=== PATIENT | female | born 1950 | race Asian ===

== ENCOUNTER 2022-03-25 11:16 | Emergency (ER) | payer OTHER ==
[2022-03-25 11:27] VITALS: PULSE 81; BMI 29.2
[2022-03-25] MEDS ORDERED: LIDOCAINE 5% TOPICAL PATCH TP ONE (12:26)
[2022-03-25] MEDS ORDERED: LIDOCAINE 5% TOPICAL PATCH ONE (13:14)
[2022-03-25 14:03] LABS: INFLU A MOLECULAR Negative (Negative); INFLU B MOLECULAR Negative (Negative)
[2022-03-25 15:07] LABS: BASO % 1.1 % (0-2.0); EOS % 3.9 % (0-4.5); HEMATOCRIT 46.2 % (32.4-45.2); HEMOGLOBIN 14.9 GM/dL (10.7-15.3); LYMPH % 28.5 % (8-40); MCH 28.3 pg (25.7-33.7); MCHC 32.4 g/dl (32.0-36.0); MEAN CELL VOLUME 87.3 fl (80-96); MEAN PLT VOLUME 7.4 fl (7.5-11.1); MONO % 5.7 % (3.8-10.2); NEUT % 60.8 % (42.8-82.8); PLATELET COUNT 357 10^3/uL (134-434); RBC 5.29 M/mm3 (3.60-5.2); RDW 14.9 % (11.6-15.6); WHITE BLOOD COUNT 9.3 K/mm3 (4.0-10.0)
[2022-03-25 15:37] LABS: CALCIUM 8.9 mg/dL (8.5-10.1)
[2022-03-25 15:38] LABS: BLOOD UREA NITROGEN 13.9 mg/dL (7-18)
[2022-03-25 15:41] LABS: CREATININE 0.7 mg/dL (0.55-1.3)
[2022-03-25 15:42] LABS: TOT PROT 8.3 g/dl (6.4-8.2)
[2022-03-25 15:43] LABS: BILIRUBIN,TOTAL 0.4 mg/dL (0.2-1)
[2022-03-25 15:46] VITALS: BP 120/68; TEMP 98
[2022-03-25] MEDS ORDERED: FLUTICASONE PROP 0.05% 16 GM NASAL SPRAY NS ONE (19:36)
[2022-03-25] MEDS ORDERED: ALBUTEROL SO4 HFA INHALER IH ONE ×2 (19:36→19:42)
[2022-03-26] MEDS ORDERED: LIDOCAINE PATCH REMOVAL MC SCH (00:30)
[2022-03-26 16:09] LABS: SARS-CoV-2 NAA Not Detected (Not Detected)
== END 2022-03-25 20:31 | disposition home or self-care (01) ==
LOC: JER 11:16
PROC: 3E0F7GC Introduction of Other Therapeutic Substance into Respiratory Tract, Via Natural or Artificial Opening (ICD-10-PCS; principal; 2022-03-25)
DX: R06.02 Shortness of breath (principal); R05.9 Cough, unspecified; R09.81 Nasal congestion
CPT/HCPCS: 36415; 71046-TC-FY; 71275-TC; 80053; 84484; 85025; 85379; 87502; 93005; 93010; 94640; 99285-25; C9803-CS; Q9967; U0003; U0005

== ENCOUNTER 2022-09-18 22:37 | Emergency (ER) | payer OTHER ==
[2022-09-18 22:45] VITALS: BP 164/74; PULSE 78; RESP 15; TEMP 98; BMI 31.1
[2022-09-18] MEDS ORDERED: DIPHTH,PERTUSS(ACELL),TET 0.5 ML DISP.SYRIN IM ONE ×2 (22:52→23:19)
[2022-09-18] MEDS ORDERED: CLINDAMYCIN HCL 300 MG CAPSULE PO ONE (23:21)
[2022-09-18] MEDS ORDERED: CLINDAMYCIN HCL 150 MG CAPSULE (FP) ONE (23:23)
== END 2022-09-19 00:21 | disposition home or self-care (01) ==
LOC: JER 22:37
PROC: 0HQNXZZ Repair Left Foot Skin, External Approach (ICD-10-PCS; principal; 2022-09-18)
PROC: 3E0234Z Introduction of Serum, Toxoid and Vaccine into Muscle, Percutaneous Approach (ICD-10-PCS; 2022-09-18)
DX: S92.424B Nondisplaced fracture of distal phalanx of right great toe, initial encounter for open fracture (principal); W22.8XXA Striking against or struck by other objects, initial encounter
CPT/HCPCS: 12001-25; 73660-TC-FY; 90471; 90715; 99283-25

== ENCOUNTER 2023-03-13 13:51 | Inpatient (IN) | payer OTHER ==
[2023-03-13 13:53] VITALS: BMI 32.0
[2023-03-13 15:42] LABS: BASO % 0.7 % (0-2.0); EOS % 3.7 % (0-4.5); HEMATOCRIT 40.8 % (32.4-45.2); HEMOGLOBIN 13.9 GM/dL (10.7-15.3); MCH 29.2 pg (25.7-33.7); MCHC 34.1 g/dl (32.0-36.0); MEAN CELL VOLUME 85.4 fl (80-96); MEAN PLT VOLUME 7.7 fl (7.5-11.1); MONO % 6.6 % (3.8-10.2); PLATELET COUNT 350 10^3/uL (134-434); RBC 4.78 M/mm3 (3.60-5.2); RDW 14.8 % (11.6-15.6); WHITE BLOOD COUNT 7.2 K/mm3 (4.0-10.0)
[2023-03-13 15:48] LABS: INR 1.12 (0.83-1.09)
[2023-03-13 15:51] LABS: ACTIVATED PTT 36.8 SECONDS (25.2-36.5)
[2023-03-13 16:00] LABS: CALCIUM 9.4 mg/dL (8.5-10.1)
[2023-03-13 16:01] LABS: ALBUMIN 3.7 g/dl (3.4-5.0); BLOOD UREA NITROGEN 14.5 mg/dL (7-18); MAGNESIUM 2.3 mg/dL (1.8-2.4)
[2023-03-13 16:04] LABS: CREATININE 0.6 mg/dL (0.55-1.3)
[2023-03-13 16:05] LABS: BILIRUBIN,TOTAL 0.5 mg/dL (0.2-1); TOT PROT 7.6 g/dl (6.4-8.2)
[2023-03-13 16:09] LABS: N-TERMINAL BNP 31.4 pg/ml (5-450)
[2023-03-13 16:32] LABS: PH,URINE 6.5 (5.0-8.0); URINE APPEARANCE CLEAR; URINE BILIRUBIN NEGATIVE (NEGATIVE); URINE COLOR YELLOW; URINE GLUCOSE (UA) NEGATIVE (NEGATIVE); URINE KETONE NEGATIVE (NEGATIVE); URINE LEUK ESTERASE NEGATIVE (NEGATIVE); URINE NITRITE NEGATIVE (NEGATIVE); URINE PROTEIN NEGATIVE (NEGATIVE); URINE UROBILINOGEN 0.2 mg/dL (0.2-1.0)
[2023-03-13] MEDS ORDERED: ALBUTEROL SO4 HFA INHALER IH PRN (17:29)
[2023-03-13] MEDS ORDERED: ACETAMINOPHEN 325 MG TABLET (FP) PO PRN (17:31)
[2023-03-13 18:09] LABS: CALCIUM 9.2 mg/dL (8.5-10.1)
[2023-03-13 18:10] LABS: BLOOD UREA NITROGEN 13.9 mg/dL (7-18)
[2023-03-13 18:13] LABS: CREATININE 0.6 mg/dL (0.55-1.3)
[2023-03-13] MEDS ORDERED: ASPIRIN COATED 81 MG TABLET.EC ONE (19:14)
[2023-03-13] MEDS: ASPIRIN COATED 81 MG TABLET.EC PO SCH (19:20)
[2023-03-13 19:24] LABS: MAGNESIUM 2.3 mg/dL (1.8-2.4)
[2023-03-13] MEDS: HEPARIN NA (PORCINE) 5,000 UNITS/ML 1ML VIAL SQ SCH (21:43)
[2023-03-13] MEDS: ATORVASTATIN CA 10 MG TABLET (FP) PO SCH (21:43)
[2023-03-14] MEDS: LEVOTHYROXINE NA 88 MCG TABLET (FP) PO SCH (07:02)
[2023-03-14] MEDS: FAMOTIDINE 20 MG TABLET PO SCH (09:32)
[2023-03-14] MEDS: MULTIVITAMINS THER W-MINERALS COMBO TABLET (FP) PO SCH (09:32)
[2023-03-14] MEDS: amLODIPine BESYLATE 5 MG TABLET (FP) PO SCH (09:32)
[2023-03-14] MEDS: HEPARIN NA (PORCINE) 5,000 UNITS/ML 1ML VIAL SQ SCH ×2 (09:33→21:34)
[2023-03-14] MEDS: ASPIRIN COATED 81 MG TABLET.EC PO SCH (09:36)
[2023-03-14] MEDS: ATORVASTATIN CA 10 MG TABLET (FP) PO SCH (21:35)
[2023-03-15] MEDS: LEVOTHYROXINE NA 88 MCG TABLET (FP) PO SCH (06:31)
[2023-03-15] MEDS: ASPIRIN COATED 81 MG TABLET.EC PO SCH (10:18)
[2023-03-15] MEDS: MULTIVITAMINS THER W-MINERALS COMBO TABLET (FP) PO SCH (10:19)
[2023-03-15] MEDS: amLODIPine BESYLATE 5 MG TABLET (FP) PO SCH (10:19)
[2023-03-15] MEDS: HEPARIN NA (PORCINE) 5,000 UNITS/ML 1ML VIAL SQ SCH ×2 (10:19→21:43)
[2023-03-15] MEDS: FAMOTIDINE 20 MG TABLET PO SCH (10:19)
[2023-03-15 12:33] LABS: HEMATOCRIT 40.1 % (32.4-45.2); HEMOGLOBIN 13.6 GM/dL (10.7-15.3); MCH 28.8 pg (25.7-33.7); MEAN CELL VOLUME 84.7 fl (80-96); MEAN PLT VOLUME 7.4 fl (7.5-11.1); PLATELET COUNT 366 10^3/uL (134-434); RBC 4.73 M/mm3 (3.60-5.2); RDW 14.7 % (11.6-15.6); WHITE BLOOD COUNT 8.5 K/mm3 (4.0-10.0)
[2023-03-15 12:56] LABS: CALCIUM 9.3 mg/dL (8.5-10.1)
[2023-03-15 12:57] LABS: ALBUMIN 3.7 g/dl (3.4-5.0); BLOOD UREA NITROGEN 13.8 mg/dL (7-18)
[2023-03-15 13:00] LABS: CREATININE 0.6 mg/dL (0.55-1.3)
[2023-03-15 13:02] LABS: BILIRUBIN,TOTAL 0.5 mg/dL (0.2-1); TOT PROT 7.5 g/dl (6.4-8.2)
[2023-03-15] MEDS: ATORVASTATIN CA 20 MG TABLET (FP) PO SCH (21:43)
[2023-03-16] MEDS: LEVOTHYROXINE NA 88 MCG TABLET (FP) PO SCH (06:36)
[2023-03-16 07:44] LABS: HEMATOCRIT 39.7 % (32.4-45.2); HEMOGLOBIN 13.5 GM/dL (10.7-15.3); MCH 28.9 pg (25.7-33.7); MCHC 33.9 g/dl (32.0-36.0); MEAN CELL VOLUME 85.1 fl (80-96); MEAN PLT VOLUME 7.2 fl (7.5-11.1); PLATELET COUNT 361 10^3/uL (134-434); RBC 4.67 M/mm3 (3.60-5.2); RDW 14.8 % (11.6-15.6); WHITE BLOOD COUNT 8.2 K/mm3 (4.0-10.0)
[2023-03-16 08:17] LABS: CREATININE 0.6 mg/dL (0.55-1.3)
[2023-03-16 08:18] LABS: BILIRUBIN,TOTAL 0.5 mg/dL (0.2-1); TOT PROT 7.1 g/dl (6.4-8.2)
[2023-03-16 08:19] LABS: ALBUMIN 3.5 g/dl (3.4-5.0); BLOOD UREA NITROGEN 14.6 mg/dL (7-18); CALCIUM 9.1 mg/dL (8.5-10.1)
[2023-03-16 08:28] LABS: CHOLESTEROL 135 mg/dL (50-200)
[2023-03-16 08:31] LABS: HDL CHOLESTEROL 41 mg/dL (40-60); LDL CHOLESTEROL (ONLY SJRH) 79 mg/dL (5-100)
[2023-03-16] MEDS ORDERED: REGADENOSON 0.4 MG/5 ML PRE-FILLED SYRINGE IVPUSH ONE ×2 (09:39→10:00)
[2023-03-16] MEDS: FAMOTIDINE 20 MG TABLET PO SCH (14:05)
[2023-03-16] MEDS: MULTIVITAMINS THER W-MINERALS COMBO TABLET (FP) PO SCH (14:06)
[2023-03-16] MEDS: amLODIPine BESYLATE 5 MG TABLET (FP) PO SCH (14:06)
[2023-03-16] MEDS: HEPARIN NA (PORCINE) 5,000 UNITS/ML 1ML VIAL SQ SCH ×2 (14:06→22:09)
[2023-03-16] MEDS: ASPIRIN COATED 81 MG TABLET.EC PO SCH (14:06)
[2023-03-16] MEDS ORDERED: FUROSEMIDE 40 MG/4 ML INJECTABLE VIAL IVPUSH ONE (15:43)
[2023-03-16] MEDS ORDERED: ALBUTEROL SO4 2.5/IPRATROPIUM 0.5 INH SOL 3 ML VIAL.NEB. NEB PRN (15:44)
[2023-03-16] MEDS: CEFTRIAXONE 1 GM in DEXTROSE 5%-WATER - 50 ML IVPB SCH (22:08)
[2023-03-16] MEDS: AZITHROMYCIN IVPB 500 MG/250 ML BAG IVPB SCH (22:09)
[2023-03-16] MEDS: ATORVASTATIN CA 20 MG TABLET (FP) PO SCH (22:09)
[2023-03-16] MEDS: BUDESONIDE/FORMETEROL FUMARATE 80/4.5 mcg INHALER IH SCH (22:17)
[2023-03-17] MEDS: LEVOTHYROXINE NA 88 MCG TABLET (FP) PO SCH (06:24)
[2023-03-17 07:58] LABS: HEMATOCRIT 41.9 % (32.4-45.2); HEMOGLOBIN 14.5 GM/dL (10.7-15.3); MCH 29.2 pg (25.7-33.7); MCHC 34.6 g/dl (32.0-36.0); MEAN CELL VOLUME 84.5 fl (80-96); MEAN PLT VOLUME 7.6 fl (7.5-11.1); PLATELET COUNT 382 10^3/uL (134-434); RBC 4.96 M/mm3 (3.60-5.2); RDW 14.6 % (11.6-15.6); WHITE BLOOD COUNT 9.9 K/mm3 (4.0-10.0)
[2023-03-17 08:20] LABS: ALBUMIN 3.9 g/dl (3.4-5.0); CALCIUM 9.5 mg/dL (8.5-10.1); MAGNESIUM 2.2 mg/dL (1.8-2.4)
[2023-03-17 08:21] LABS: BLOOD UREA NITROGEN 14.6 mg/dL (7-18)
[2023-03-17 08:23] LABS: CREATININE 0.7 mg/dL (0.55-1.3); PHOSPHOROUS 3.9 mg/dL (2.5-4.9)
[2023-03-17 08:25] LABS: BILIRUBIN,TOTAL 0.6 mg/dL (0.2-1); TOT PROT 8.2 g/dl (6.4-8.2)
[2023-03-17] MEDS: VALSARTAN 40 MG TABLET PO SCH (10:06)
[2023-03-17] MEDS: ASPIRIN 81 MG CHEWABLE TABLETS PO SCH (10:06)
[2023-03-17] MEDS: metoPROLOL SUCCINATE 25 MG TAB.SR.24H (FP) PO SCH (10:06)
[2023-03-17] MEDS: FAMOTIDINE 20 MG TABLET PO SCH (10:06)
[2023-03-17] MEDS: HEPARIN NA (PORCINE) 5,000 UNITS/ML 1ML VIAL SQ SCH ×2 (10:06→21:09)
[2023-03-17] MEDS: MULTIVITAMINS THER W-MINERALS COMBO TABLET (FP) PO SCH (10:06)
[2023-03-17] MEDS: amLODIPine BESYLATE 2.5 MG TABLET (FP) PO SCH (10:06)
[2023-03-17] MEDS: CEFTRIAXONE 1 GM in DEXTROSE 5%-WATER - 50 ML IVPB SCH (10:07)
[2023-03-17] MEDS: AZITHROMYCIN IVPB 500 MG/250 ML BAG IVPB SCH (10:09)
[2023-03-17] MEDS: BUDESONIDE/FORMETEROL FUMARATE 80/4.5 mcg INHALER IH SCH ×2 (10:57→21:10)
[2023-03-17] MEDS: methylPREDNISolone NA SUCC 40 MG/1 ML VIAL IVPUSH SCH ×2 (16:37→17:07)
[2023-03-17 16:57] LABS: ARTERIAL BLD GAS O2 SATURATION 92.8 % (95-98); ARTERIAL BLOOD GAS BASE EXCESS 5.4 mmol/L (-2-2); ARTERIAL BLOOD GAS PO2 63.4 mmHg (80-100); ARTERIAL BLOOD GAS pH 7.436 (7.350-7.450)
[2023-03-17 16:59] LABS: ALLENS TEST POSITIVE
[2023-03-17] MEDS: ATORVASTATIN CA 20 MG TABLET (FP) PO SCH (21:09)
[2023-03-18] MEDS: methylPREDNISolone NA SUCC 40 MG/1 ML VIAL IVPUSH SCH ×2 (03:26→09:01)
[2023-03-18] MEDS: LEVOTHYROXINE NA 88 MCG TABLET (FP) PO SCH (06:17)
[2023-03-18 07:28] LABS: BASO % 0.6 % (0-2.0); HEMATOCRIT 39.8 % (32.4-45.2); HEMOGLOBIN 13.6 GM/dL (10.7-15.3); LYMPH % 10.9 % (8-40); MCH 29.1 pg (25.7-33.7); MCHC 34.2 g/dl (32.0-36.0); MEAN PLT VOLUME 7.4 fl (7.5-11.1); MONO % 1.1 % (3.8-10.2); NEUT % 87.4 % (42.8-82.8); PLATELET COUNT 393 10^3/uL (134-434); RBC 4.68 M/mm3 (3.60-5.2); RDW 14.6 % (11.6-15.6); WHITE BLOOD COUNT 14.3 K/mm3 (4.0-10.0)
[2023-03-18] MEDS: ASPIRIN 81 MG CHEWABLE TABLETS PO SCH (09:00)
[2023-03-18] MEDS: VALSARTAN 40 MG TABLET PO SCH (09:00)
[2023-03-18] MEDS: amLODIPine BESYLATE 2.5 MG TABLET (FP) PO SCH (09:01)
[2023-03-18] MEDS: MULTIVITAMINS THER W-MINERALS COMBO TABLET (FP) PO SCH (09:01)
[2023-03-18] MEDS: HEPARIN NA (PORCINE) 5,000 UNITS/ML 1ML VIAL SQ SCH ×2 (09:01→21:59)
[2023-03-18] MEDS: FAMOTIDINE 20 MG TABLET PO SCH (09:01)
[2023-03-18] MEDS: metoPROLOL SUCCINATE 25 MG TAB.SR.24H (FP) PO SCH (09:01)
[2023-03-18] MEDS: BUDESONIDE/FORMETEROL FUMARATE 80/4.5 mcg INHALER IH SCH ×2 (09:02→22:00)
[2023-03-18 09:41] LABS: ALBUMIN 3.6 g/dl (3.4-5.0); BILIRUBIN,TOTAL 0.5 mg/dL (0.2-1); BLOOD UREA NITROGEN 19.7 mg/dL (7-18); CALCIUM 9.2 mg/dL (8.5-10.1); CREATININE 0.7 mg/dL (0.55-1.3); MAGNESIUM 2.3 mg/dL (1.8-2.4); PHOSPHOROUS 3.2 mg/dL (2.5-4.9); TOT PROT 7.8 g/dl (6.4-8.2)
[2023-03-18 12:30] LABS: HEMATOCRIT 42.5 % (32.4-45.2); HEMOGLOBIN 14.2 GM/dL (10.7-15.3); MCH 28.4 pg (25.7-33.7); MCHC 33.4 g/dl (32.0-36.0); MEAN CELL VOLUME 85.2 fl (80-96); MEAN PLT VOLUME 7.8 fl (7.5-11.1); PLATELET COUNT 403 10^3/uL (134-434); RBC 4.98 M/mm3 (3.60-5.2); RDW 14.7 % (11.6-15.6); WHITE BLOOD COUNT 17.9 K/mm3 (4.0-10.0)
[2023-03-18] MEDS: ATORVASTATIN CA 20 MG TABLET (FP) PO SCH (21:54)
[2023-03-19] MEDS: HEPARIN NA (PORCINE) 5,000 UNITS/ML 1ML VIAL SQ SCH ×2 (06:24→14:03)
[2023-03-19] MEDS: LEVOTHYROXINE NA 88 MCG TABLET (FP) PO SCH (06:24)
[2023-03-19 08:21] LABS: HEMATOCRIT 40.1 % (32.4-45.2); HEMOGLOBIN 13.5 GM/dL (10.7-15.3); MCH 28.8 pg (25.7-33.7); MCHC 33.6 g/dl (32.0-36.0); MEAN CELL VOLUME 85.6 fl (80-96); PLATELET COUNT 433 10^3/uL (134-434); RBC 4.68 M/mm3 (3.60-5.2); RDW 14.7 % (11.6-15.6); WHITE BLOOD COUNT 18.5 K/mm3 (4.0-10.0)
[2023-03-19 08:41] LABS: ALBUMIN 3.6 g/dl (3.4-5.0); CALCIUM 9.4 mg/dL (8.5-10.1); MAGNESIUM 2.5 mg/dL (1.8-2.4)
[2023-03-19 08:43] LABS: CREATININE 0.7 mg/dL (0.55-1.3)
[2023-03-19 08:44] LABS: BLOOD UREA NITROGEN 23.3 mg/dL (7-18)
[2023-03-19 08:45] LABS: BILIRUBIN,TOTAL 0.5 mg/dL (0.2-1); TOT PROT 7.6 g/dl (6.4-8.2)
[2023-03-19 08:47] LABS: PHOSPHOROUS 3.5 mg/dL (2.5-4.9)
[2023-03-19 09:36] VITALS: RESP 18
[2023-03-19] MEDS: MULTIVITAMINS THER W-MINERALS COMBO TABLET (FP) PO SCH (09:36)
[2023-03-19] MEDS: VALSARTAN 40 MG TABLET PO SCH (09:36)
[2023-03-19] MEDS: metoPROLOL SUCCINATE 25 MG TAB.SR.24H (FP) PO SCH (09:36)
[2023-03-19] MEDS: BUDESONIDE/FORMETEROL FUMARATE 80/4.5 mcg INHALER IH SCH (09:37)
[2023-03-19] MEDS: amLODIPine BESYLATE 2.5 MG TABLET (FP) PO SCH (09:37)
[2023-03-19] MEDS: FAMOTIDINE 20 MG TABLET PO SCH (09:37)
[2023-03-19] MEDS: ASPIRIN 81 MG CHEWABLE TABLETS PO SCH (09:37)
[2023-03-19] MEDS ORDERED: predniSONE 20 MG TABLET (UD) PO SCH (10:00)
[2023-03-19 15:23] VITALS: BP 119/70; PULSE 69; TEMP 97.8
== END 2023-03-19 18:34 | disposition home or self-care (01) | DRG 191 ==
LOC: JER 13:51 → JERBED 14:12 → J4W 19:56 → OBSVTOIN 03-16 15:46
PROVIDERS: ADMIT Internal Medicine; ATTEND Internal Medicine
DX: J44.1 Chronic obstructive pulmonary disease with (acute) exacerbation (principal); I24.8 Other forms of acute ischemic heart disease; E03.9 Hypothyroidism, unspecified; I10 Essential (primary) hypertension; E66.9 Obesity, unspecified; Z68.31 Body mass index [BMI] 31.0-31.9, adult; R07.2 Precordial pain; K21.9 Gastro-esophageal reflux disease without esophagitis; E78.5 Hyperlipidemia, unspecified; I25.10 Atherosclerotic heart disease of native coronary artery without angina pectoris; G47.33 Obstructive sleep apnea (adult) (pediatric); R09.02 Hypoxemia; R93.1 Abnormal findings on diagnostic imaging of heart and coronary circulation
CPT/HCPCS: 0241U-QW; 36415; 36600; 71045-TC-FY; 71250-TC; 78452-TC; 80048; 80053; 80061; 81003; 82803; 83690; 83735; 83880; 84100; 84443; 84484; 85025; 85027; 85610; 85730; 87086; 87899; 93005; 93010; 93017; 93306-TC; 93970-TC; 94761; 99285-25; A9502; G0378; J1644; J2785

== ENCOUNTER 2024-09-23 04:31 | Day surgery (SDC) | payer OTHER ==
[2024-09-16 11:19] VITALS: BMI 32.0
[2024-09-23 09:21] VITALS: TEMP 97.5
[2024-09-23 10:13] VITALS: BP 110/81; PULSE 58; RESP 17
== END 2024-09-23 10:20 | disposition home or self-care (01) ==
LOC: JASU-ENDO 04:31
PROVIDERS: ATTEND Internal Medicine Gastroenterology
PROC: 0DJD8ZZ Inspection of Lower Intestinal Tract, Via Natural or Artificial Opening Endoscopic (ICD-10-PCS; 2024-09-23)
PROC: 0DBM8ZX Excision of Descending Colon, Via Natural or Artificial Opening Endoscopic, Diagnostic (ICD-10-PCS; principal; 2024-09-23 09:00)
DX: Z12.11 Encounter for screening for malignant neoplasm of colon (principal); D12.8 Benign neoplasm of rectum; K63.5 Polyp of colon; K29.50 Unspecified chronic gastritis without bleeding
CPT/HCPCS: 82962; 88305-TC; 88342-TC